=== PATIENT | male | born 1995 ===

== ENCOUNTER 2022-01-18 18:07 | Emergency (ER) | payer SELFPAY ==
[2022-01-18] MEDS ORDERED: PALI1.5T PO (19:23)
[2022-01-18] MEDS ORDERED: RISP1TAB48 PO (19:23)
== END 2022-01-18 23:05 | disposition left against medical advice (07) ==
LOC: EMS 18:10
DX: R10.9 Unspecified abdominal pain (principal); R07.9 Chest pain, unspecified; F31.9 Bipolar disorder, unspecified; I10 Essential (primary) hypertension; E11.9 Type 2 diabetes mellitus without complications; F20.9 Schizophrenia, unspecified; Z87.891 Personal history of nicotine dependence; Z53.21 Procedure and treatment not carried out due to patient leaving prior to being seen by health care provider